=== PATIENT | male | born 1970 | race Hispanic/Latino ===

== ENCOUNTER 2022-09-20 09:07 | Emergency (ER) | payer BC ==
[2022-09-20] MEDS ORDERED: ASPIRIN 81 MG CHEWABLE TABLET ONE (09:23)
[2022-09-20 09:37] LABS: Hematocrit 47.1 % (39.6-49.0); Lymphocytes % 24.3 % (15.3-44.8); MCV 89.9 fL (80-100); MPV 7.6 fL (7.6-11.3); RBC Red Blood Cell Count 5.23 M/uL (4.33-5.43)
[2022-09-20 10:00] LABS: ALT/SGPT 41 U/L (16-61); AST/SGOT 21 U/L (15-37); Albumin 4.1 g/dL (3.4-5.0); Alkaline Phosphatase 103 U/L (45-117); BUN Blood Urea Nitrogen 19 mg/dL (7-18); Bicarbonate 26 mmol/L (21-32); Bilirubin Total 0.3 mg/dL (0.2-1.0); Glomerular Filtration Rate 83 ml/min (=/>90); Glucose Level 97 mg/dL (74-106); Potassium 4.1 mmol/L (3.5-5.1); Protein, Total 8.4 g/dL (6.4-8.2); Sodium Level 139 mmol/L (136-145); Troponin High Sensitivity 4.6 pg/mL (<58.9)
[2022-09-20 10:09] LABS: NT PRO-BNP < 5 pg/mL (<125)
--- NOTE | 2022-09-20 10:29 | RAD REPORT ---
EXAM DESCRIPTION: RAD - Chest Single View - 09/20/2022 10:23 am CLINICAL HISTORY: CHEST PAIN Chest pain. COMPARISON: No comparisons FINDINGS: Portable technique limits examination quality. The lungs are grossly clear. The heart is normal in size. No displaced fractures. IMPRESSION: No acute intrathoracic process suspected.
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
[2022-09-20 11:37] VITALS: TEMP 98.3
[2022-09-20 11:48] VITALS: BP 118/85; O2SAT 96
--- NOTE | 2022-09-20 14:52 | EKG ---
Test Date: 2022-09-20 Test Time: 09:32:08 Repairer Cylinder Heads: PRASAD MEASUREMENT RESULTS: Intervals: Rate: 81 MD: 144 QRSD: 96 QT: 364 QTc: 422 [place]: P: 38 MD: 144 QRS: 30 T: 35 INTERPRETIVE STATEMENTS: Normal sinus rhythm Normal ECG No previous ECG available for comparison Electronically Signed On 09-20-22 14:51:20 KILN PACKER by Jos Rojo
== END 2022-09-20 11:28 | disposition home or self-care (01) ==
LOC: ER 09:07
DX: R07.89 Other chest pain (principal); F17.210 Nicotine dependence, cigarettes, uncomplicated
CPT/HCPCS: 36415; 71045; 80053; 83880; 84484; 85025; 85379; 93005; 99285